=== PATIENT | female | born 1980 | race Caucasian/White ===

== ENCOUNTER 2020-12-20 18:30 | Outpatient (CLI) | payer BC | END 2020-12-20 18:31 | disposition home or self-care (01) | LOC: SLEEPLAB 18:30 | PROVIDERS: ATTEND Student in an Organized Health Care Education/Training Program | DX: G47.33 Obstructive sleep apnea (adult) (pediatric) (principal); R53.83 Other fatigue; R51.9 Headache, unspecified; R06.83 Snoring; F41.9 Anxiety disorder, unspecified; E66.9 Obesity, unspecified; G47.00 Insomnia, unspecified; F32.9 Major depressive disorder, single episode, unspecified; Z68.34 Body mass index [BMI] 34.0-34.9, adult | CPT/HCPCS: 95806 ==

== ENCOUNTER 2024-06-22 08:13 | Outpatient (CLI) | payer BC | END 2024-06-22 08:14 | disposition home or self-care (01) | LOC: SCSRAD 08:13 | PROVIDERS: ATTEND Family Medicine | DX: S59.911A Unspecified injury of right forearm, initial encounter (principal); S69.91XA Unspecified injury of right wrist, hand and finger(s), initial encounter; S99.912A Unspecified injury of left ankle, initial encounter; M25.421 Effusion, right elbow; M79.89 Other specified soft tissue disorders ==